=== PATIENT | female | born 1975 ===

== ENCOUNTER 2018-09-09 08:56 | Inpatient (IN) | payer BC ==
[2018-09-09 08:58] VITALS: O2SAT 98
[2018-09-09] MEDS ORDERED: Albuterol-Ipratrop 3 mg / 0.5 (3 ml) UD INH STA (09:14)
[2018-09-09] MEDS ORDERED: Lidocaine/Epi 1% 1:100000 20 ML IJ ONE (09:45)
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
[2018-09-09] MEDS ORDERED: Lidocaine 1% w Epi 1:100,000 Inj ONE (10:03)
[2018-09-09] MEDS ORDERED: Albuterol-Ipratrop 3 mg / 0.5 (3 ml) UD ONE (10:04)
[2018-09-09 10:06] LABS: BASO % 0.5 % (0.0-2.0); EOS # 0.1 K/uL (0.0-0.7); EOS % 1.1 % (0.0-4.0); HEMOGLOBIN 13.3 g/dL (12.0-16.0); LYMPH # 1.5 K/uL (1.0-4.3); LYMPH % 14.1 % (20.0-40.0); MEAN CELL VOLUME 96.7 fl (81.0-99.0); MEAN PLATELET VOLUME 8.4 fl (7.2-11.7); MONO # 0.7 K/uL (0.0-0.8); MONO % 6.1 % (0.0-10.0); NEUT # 8.4 K/uL (1.8-7.0); NEUT % 78.2 % (50.0-75.0); NRBC % 0.1 % (0.0-0.0); RBC 4.17 Mil/uL (3.80-5.20); RED CELL DISTRIBUTION WIDTH 12.9 % (11.5-14.5); WHITE BLOOD COUNT 10.8 K/uL (4.8-10.8)
[2018-09-09 10:20] LABS: ALB/GLOB RATIO 1.1 (1.0-2.1); ALBUMIN 3.5 g/dL (3.5-5.0); ALT/SGPT 29 U/L (9-52); AST/SGOT 31 U/L (14-36); BLOOD UREA NITROGEN 8 mg/dl (7-17); CALCIUM 8.8 mg/dL (8.4-10.2); GFR NON-AFRICAN AMERICAN > 60
--- NOTE | 2018-09-09 10:58 | ED PDOC ---
HPI: Psych/Substance Abuse Time Seen by Provider: 09/09/18 09:06 Chief Complaint (Nursing): Psychiatric Evaluation Past Medical History Vital Signs: Last Vital Signs Temp 98.4 F 09/09/18 08:57 Pulse 72 09/09/18 08:57 Resp 18 09/09/18 08:57 BP 161/85 H 09/09/18 08:57 Pulse Ox 98 09/09/18 09:54 - Medical History PMH: Asthma, Depression - Surgical History Surgical History: No Surg Hx - Family History Family History: States: Unknown Family Hx - Allergies Allergies/Adverse Reactions: Allergies Allergy/AdvReac Type Severity Reaction Status Date / Time aspirin Allergy SWELLING Verified 09/09/18 09:10 cortisone Allergy RASH Verified 09/09/18 09:11 Penicillins Allergy RASH Verified 09/09/18 09:09 - Laboratory Results Result Diagrams: 09/09/18 09:50 09/09/18 09:50 - ECG O2 Sat by Pulse Oximetry: 98 (RA) Disposition - Disposition Forms: [employer] (Slovak)
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
[2018-09-09 11:52] LABS: SQUAMOUS EPITHIAL 1 /hpf (0-5); URINE BACTERIA OCC (<OCC); URINE BILIRUBIN NEGATIVE (NEGATIVE); URINE BLOOD NEGATIVE (NEGATIVE); URINE CLARITY CLEAR (Clear); URINE COLOR STRAW (YELLOW); URINE GLUCOSE (UA) NEG (NEGATIVE); URINE LEUKOCYTE ESTERASE NEG Leu/uL (Negative); URINE PROTEIN NEGATIVE (NEGATIVE); URINE UROBILINOGEN 0.2-1.0 mg/dL (0.2-1.0)
[2018-09-09 12:18] LABS: BARBITURATES, UR NEGATIVE (NEGATIVE); BENZODIAZEPINES, UR NEGATIVE (NEGATIVE); OPIATES, UR NEGATIVE (NEGATIVE); PHENCYCLIDINE, UR NEGATIVE (NEGATIVE)
[2018-09-09 13:49] LABS: ACETAMINOPHEN < 10.0 ug/ml (10.0-30.0); SALICYLATE < 1.0 mg/dl
--- NOTE | 2018-09-09 19:00 | CARD ---
APPROVED REPORT Date of service: 09/09/2018 EKG Measurement Heart [id number] <Conclusion> Normal sinus rhythm with sinus arrhythmia Normal ECG
[2018-09-09] MEDS ORDERED: Alum-Mag Hydrox-Simethicone Susp (30 mL) PO PRN (20:06)
[2018-09-09] MEDS ORDERED: DiphenhydrAMINE 50 mg/ml Inj IM PRN (20:06)
[2018-09-09] MEDS ORDERED: Magnesium Hydroxide Susp 30 ml UD PO PRN (20:06)
[2018-09-09] MEDS ORDERED: Albuterol-Ipratrop 3 mg / 0.5 (3 ml) UD IH PRN (20:37)
--- NOTE | 2018-09-09 20:53 | PCM.BM ---
<Margaret Ozuna Adriano - Last Filed: 09/09/18 20:51> Treatment Plan Problems - Problems identified on initial assessmt Hopelessness/Helplessness Date Initiated: 09/09/18 Time Initiated: 20:52 Assessment reference: NA Status: Active Self Harm Date Initiated: 09/09/18 Time Initiated: 20:52 Assessment reference: NA Status: Active Altered Sleep Patterns Date Initiated: 09/09/18 Time Initiated: 20:53 Assessment reference: NA Status: Active Treatment assets and liabiliti Patient Assests: cooperative, educated, self-reliant, ADL independent, negotiates basic needs Patient Liabilities: financial problems, poor support system, relationship conflicts (Homelessness), other (Homelessness) - Milieu Protocol Maintain good personal hygiene: daily Encourage regular showers, every shift Remind patient to perform daily oral care Conduct patient checks and document Observation sheet: Q15 minutes Maintain personal safety: every shift Educate patient to report safety concerns to staff, every shift Monitor environment for contraband/sharps Medication safety: Monitor for expected outcome, potential side effects: every shift, Assess barriers to learning: every shift, Assess readiness for medication education: every shift <ReneShira - Last Filed: 09/11/18 15:52> Treatment assets and liabiliti Patient Assests: good support system (Pt. identifies as "reason for living" but identifies as primary stressor), cognitively intact Patient Liabilities: poor support system (Pt. reports mother was primary source of support until her 16 years ago. ), relationship conflicts (Pt. reports significant discord with for past 4 years. ), substance abuse (Pt. appears to be minimizing substance abuse. Pt. minimally receptive to feedback regarding risks of ongoing substance abuse and benefits of sobriety.) Family Contact Family involvement: Family/SO is involved Family contact: Patient agrees to contact, Family has been contacted by patient, Telephone contact initiated by staff - Outside Agency Agency 1 Care involvment: Following patient during stay, Information-sharing Agency contact name: Belia Ag LCSW Agency contact number: Agency 2 Care involvment: Following patient during stay, Information-sharing Agency contact name: Dr. Olga Mendoza Agency contact number: - Goals for Treatment Patient goals for treatment: Patient to continue stabilization on 3NP through medication management and group/supportive therapy to address sxs of depression and eliminate suicidal ideations. Patient to be encouraged to attend groups regularly to promote self-awareness, sobriety, and improve insight, compliance, coping skills and self-esteem. Patient to be provided with referral for appropriate level of aftercare to reduce risk of future hospitalizations and ensure safety in the community. Pt. identified "figuring out what the hell to do with my marriage" and "grasping at a reason to live" as primary tx goals. Discharge/Continuing Care - Education Needs Education Needs: Patient Medication, Patient Diagnosis/Disease Process, Patient Coping Skills, Patient Anger Management skills, Patient Community resources, Patient Aftercare Safety Plan - Discharge Discharge Criteria: Tolerates medication w/o severe side effects, Free of Suicidal thoughts, Normal sleep pattern, Other Discharge to:: Home, With Family (Pt. reports meeting with on 09/10 and discussing goals to repair marriage but improving communication. Pt. now has plans to return home upon discharge.) - Treatment Team Participation Patient/Family/SO Statement: 09/11/18 15:58 Pt. attended tx team on 09/10 to discuss precursors to hospitalizations and tx goal. Pt. expressed sxs of depression as exhibited by tearfulness, feelings of hopelessness/helplessness. Pt. histrionic and labile. Pt. reported passive suicidal ideations without plan or intent and was able to contract for safety on 3NP. Pt. denied feeling remorse regarding suicide attempt leading to admission and expressed disappointment that she could not complete attempt. Pt. stated I wont try cutting again. That hurt too much. Insight/Coping skills/Judgment impaired. Pt. grandiose at times. Pt. unable to explore alternate coping skills or future oriented thinking independently. Pt. hesitant to restart depakote but agreeable. Pt. expressed anxiety regarding visitation with on 09/10 and fear of becoming homeless if meeting did not go well. Benefits of having conversation with loved ones in a safe, structured environment such as 3NP discussed. Staff availability emphasized. Discussed with Family/SO: No Was Patient/Family/SO present at Treatment Team Meeting: Yes <Seferino Williamson - Last Filed: 09/12/18 12:30> - Diagnosis (1) Depression Status: Acute Interventions: 09/12/18 12:30 psychotherapy, pharmacotherapy
[2018-09-09] MEDS: Fluticasone-Salmeterol 250-50mcg Diskus IH SCH (21:30)
[2018-09-10] MEDS: Albuterol HFA 90 mcg/actuation (8 g) IH PRN ×3 (06:36→17:49)
[2018-09-10] MEDS: Fluticasone-Salmeterol 250-50mcg Diskus IH SCH ×2 (09:00→21:12)
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
[2018-09-10] MEDS: Sucralfate 1 gm/10 ml Oral Susp UD PO SCH ×3 (16:19→21:12)
--- NOTE | 2018-09-10 17:10 | PCM.PSYCH ---
Initial Psychiatric Evaluation - Initial Psychiatric Evaluation Type of Admission: Voluntary Legal Status: Capacity Chief Complaint (in patient's own words): I just feel trapped in my relation History of Present Illness and Precipitating Events: pt is a 42 ys old female with previous diagnosis of depression brought to ER after suicidal attempt by cutting her wrist , pt has been having marital problems with her , has also been partially compliant with her medications, recent stressors the memory of of her mother and uncle, patient also has been feeling trapped in her marriage and sees no way out feeling hopless and helpless , attempted suicide by cutting her wrist pt has previous suiicdal attempt by overdose on the unit continues to be irritable anxious and labile verbalizing passive suicidal ideation without active plan , denied command hallucinations , denied homicidal ideation Current Medications: Active Medications Generic Name Dose Route Start Last Admin Trade Name Freq PRN Reason Stop Dose Admin Acetaminophen 650 mg 09/09/18 20:06 Tylenol 325mg Tab PO Q4 PRN Pain, moderate (4-7) Al Hydrox/Mg Hydrox/Simethicone 30 ml 09/09/18 20:06 Maalox Plus 30 Ml PO Q4 PRN Dyspepsia Albuterol 2 puff 09/09/18 20:37 09/10/18 11:48 Ventolin Hfa 90 Mcg/Actuation (8 G) IH 2 puff Q6 PRN Administration Shortness of Breath Albuterol/Ipratropium 3 ml 09/09/18 20:37 Duoneb 3 Mg/0.5 Mg (3 Ml) Ud IH Q6 PRN Shortness of Breath Clonazepam 0.5 mg 09/10/18 22:00 Klonopin PO HS ALEJANDRA Clonazepam 0.5 mg 09/11/18 09:00 Klonopin PO DAILY ALEJANDRA Diphenhydramine HCl 50 mg 09/09/18 20:06 Benadryl IM Q6 PRN Extrapyramidal S/S Unable PO Diphenhydramine HCl 50 mg 09/09/18 20:06 Benadryl PO Q6 PRN Extrapyramidal Symptoms Divalproex Sodium 750 mg 09/10/18 22:00 Depakote Er(Once Daily) PO HS ALEJANDRA Haloperidol 5 mg 09/09/18 20:06 Haldol PO Q4 PRN Agitation Haloperidol Lactate 5 mg 09/09/18 20:06 Haldol IM Q4 PRN Agitation, Unable to Take PO Home Med 20 mg 09/10/18 14:54 Omeprazole Magnesium [Prilosec Otc] PO DAILY PRN Heartburn Lorazepam 2 mg 09/09/18 20:06 Ativan IM Q4 PRN Anxiety/Agitation,Unable PO Magnesium Hydroxide 30 ml 09/09/18 20:06 Milk Of Magnesia PO HS PRN Constipation Montelukast Sodium 10 mg 09/10/18 22:00 Singulair PO HS ALEJANDRA Fluticasone/Salmeterol 1 puff 09/09/18 21:00 09/10/18 09:00 Advair Diskus 250/50 IH 1 puff Q12 ALEJANDRA Administration Sucralfate 1 gm 09/10/18 09:15 09/10/18 16:21 Carafate Oral Susp PO Not Given BID ALEJANDRA Trazodone HCl 50 mg 09/09/18 21:29 09/09/18 22:12 Desyrel PO 50 mg HS PRN Administration Insomnia Venlafaxine HCl 75 mg 09/11/18 09:00 Effexor Xr PO DAILY ALEJANDRA Past Psychiatric History - Past Psychiatric History Explanation of prior treatment: one hospitalization due to overdose Pertinent Medical Hx (Current Medical&Sleep Prob, Allergies): Allergies Allergy/AdvReac Type Severity Reaction Status Date / Time aspirin Allergy SWELLING Verified 09/09/18 09:10 cortisone Allergy RASH Verified 09/09/18 09:11 Penicillins Allergy RASH Verified 09/09/18 09:09 PORK Allergy RASH Verified 09/09/18 13:16 Albuterol Sulfate [Ventolin Hfa] 2 puff IH Q6 PRN 09/09/18 Albuterol/Ipratropium [Duoneb 3 mg/0.5 mg (3 ml) UD] 3 ml IH Q6 PRN 09/09/18 Divalproex [Depakote ER] 1,000 mg PO HS 09/09/18 Fluticasone/Salmeterol [Advair 250-50 Diskus] 1 puff IH Q12 09/09/18 Montelukast [Singulair] 10 mg PO HS 09/09/18 Omeprazole Magnesium [Prilosec Otc] 20 mg PO DAILY PRN 09/09/18 Venlafaxine [Effexor XR] 150 mg PO DAILY 09/09/18 clonazePAM [Klonopin] 0.5 mg PO Q12 09/09/18 Mental Status Examination - Personal Presentation Personal Presentation: Looks stated age - Affect Affect: Constricted - Motor Activity Motor Activity: Psychomotor Agitation - Reliability in Providing Information Reliability in Providing Information: Fair - Speech Speech: Relevant - Mood Mood: Depressed, Anxious - Formal Thought Process Formal Thought Process: No Impairment - Obsessions/Compulsions Obsessions: No Compulsions: No - Cognitive Functions Orientation: Person, Place Attention/Concentration: Attentive - Risk Risk: Suicidal, Self-mutilation, Diminished functioning - Strength & Assets Inventory Strength & Assets Inventory: Employment history - Limitations Additional comments: conflict with primary support group DSM 5 DX - DSM 5 DSM 5 Diagnosis: depression rule out bipolar disorder depressed borderline personality traits - Recommended/Plan of Treatment Treatment Recommendations and Plan of Treatment: effexor xr 75 mg daily, increase gradually depakte er 750mg qhs klonopin 0.5mg bid cbt group and supportive therapy
[2018-09-10] MEDS: Divalproex 250 mg ER (ONCE DAILY formulation) PO SCH (21:13)
[2018-09-11] MEDS: Sucralfate 1 gm/10 ml Oral Susp UD PO SCH ×4 (08:07→21:07)
[2018-09-11 08:16] LABS: T4 6.65 ug/dl (5.5-11.0)
[2018-09-11] MEDS: Fluticasone-Salmeterol 250-50mcg Diskus IH SCH ×2 (09:27→21:09)
[2018-09-11] MEDS: Venlafaxine 75 mg ER Cap PO SCH (09:28)
[2018-09-11] MEDS: Divalproex 250 mg ER (ONCE DAILY formulation) PO SCH (21:06)
[2018-09-11] MEDS: Albuterol HFA 90 mcg/actuation (8 g) IH PRN (22:03)
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
[2018-09-12] MEDS: Sucralfate 1 gm/10 ml Oral Susp UD PO SCH ×4 (08:13→21:19)
[2018-09-12] MEDS: Fluticasone-Salmeterol 250-50mcg Diskus IH SCH ×2 (09:00→21:19)
[2018-09-12] MEDS: Venlafaxine 75 mg ER Cap PO SCH (09:00)
--- NOTE | 2018-09-12 13:42 | PCM.PYCHPN ---
Psychiatric Progress Note - Psychiatric Progress Note Patient seen today, length of contact: chart reviewed, case discussed with team Patient Chief Complaint: I still have mood swings and I feel down Problems Identified/Issues Discussed: pt evaluated, reported continues to have episodes of irritability and mood swings, relates that to the unstable relation with her , CBT provided and discussed with patient importance of family therapy on discharge ,discussed increasing dose of depakote, also discussed increasing dose of effexor for depressed mood, no reported side effects, encouraged pt to attend groups, pt denied any current active thoughts of self harm on the unit Medical Problems: one hospitalization due to overdose DSM 5 Symptoms Update: bipolar disorder depressed borderline personality traits Medication Change: Yes (increase effexor and depakote) Medical Record Reviewed: Yes Mental Status Examination - Cognitive Function Orientation: Person, Place, Situation, Time Memory: Intact Attention: WNL Concentration: WNL Association: WNL Fund of Knowledge: [facility] Decription of patient's judgement and insights: partial insight , fair judgment - Mood Mood: Depressed, Anxious - Affect Affect: Constricted - Speech Speech: Soft - Formal Thought Process Formal Thought Process: No Impairment Psychotic Thoughts and Behaviors: pt denied psychotic symptoms, non elicited - Suicidal Ideation Suicidal Ideation: No - Homicidal Ideation Homicidal Ideation: No Goal/Treatment Plan - Goal/Treatment Plan Need for Continued Stay: Severe depression anxiety, Discharge may exacerbated symptoms Progress Toward Problem(s) and Goals/Treatment Plan: increase effexor xr 150 mg daily, increase gradually increase depakte er 1000 mg qhs klonopin 0.5mg bid cbt group and supportive therapy Estimated Date of D/C: 09/15/18
[2018-09-12] MEDS: Divalproex 500 mg ER (ONCE DAILY formulation) PO SCH (21:19)
[2018-09-13] MEDS: Sucralfate 1 gm/10 ml Oral Susp UD PO SCH ×4 (08:12→21:17)
[2018-09-13] MEDS: Fluticasone-Salmeterol 250-50mcg Diskus IH SCH ×2 (08:58→21:19)
[2018-09-13] MEDS: Venlafaxine 150 mg ER Cap PO SCH (09:00)
--- NOTE | 2018-09-13 10:56 | PCM.PYCHPN ---
Psychiatric Progress Note - Psychiatric Progress Note Patient seen today, length of contact: Pt evaluated, chart reviewed Patient Chief Complaint: Depression Problems Identified/Issues Discussed: Patient reports feeling less depressed and states that her mood swings are less frequent. She denies acute AH/VH/SI/HI/paranoia/delusions. She denies adverse effects to medications. Medication Change: No Medical Record Reviewed: Yes Consults ordered or reviewed: Medicine consult Mental Status Examination - Cognitive Function Orientation: Person, Place, Situation, Time Memory: Intact Attention: WNL Concentration: WNL Association: WNL Fund of Knowledge: [facility] Decription of patient's judgement and insights: Fair I/J - Mood Mood: Depressed, Anxious - Affect Affect: Constricted - Speech Speech: Soft - Formal Thought Process Formal Thought Process: No Impairment Psychotic Thoughts and Behaviors: NO AH/VH/paranoia/delusions - Suicidal Ideation Suicidal Ideation: No - Homicidal Ideation Homicidal Ideation: No Goal/Treatment Plan - Goal/Treatment Plan Need for Continued Stay: Severe depression anxiety, Discharge may exacerbated symptoms Progress Toward Problem(s) and Goals/Treatment Plan: Bipolar Disorder -Continue Depakote, Klonocristal, Effexor -Individual and group therapy -Medicine consult -Psychoeducation -Disposition planning Estimated Date of D/C: 09/15/18
[2018-09-13] MEDS: Multivitamin With Minerals Tab PO SCH (13:14)
[2018-09-13] MEDS: Albuterol HFA 90 mcg/actuation (8 g) IH PRN (20:28)
[2018-09-13] MEDS: Divalproex 500 mg ER (ONCE DAILY formulation) PO SCH (21:16)
[2018-09-14] MEDS: Albuterol HFA 90 mcg/actuation (8 g) IH PRN (03:59)
[2018-09-14 08:01] LABS: BASO % 0.6 % (0.0-2.0); EOS # 0.1 K/uL (0.0-0.7); EOS % 0.8 % (0.0-4.0); HEMOGLOBIN 13.1 g/dL (12.0-16.0); LYMPH # 1.8 K/uL (1.0-4.3); MEAN CELL VOLUME 95.8 fl (81.0-99.0); MEAN CORPUSCULAR HEMOGLOBIN 31.8 pg (27.0-31.0); MEAN CORPUSCULAR HGB CONC 33.1 g/dL (33.0-37.0); MEAN PLATELET VOLUME 9.3 fl (7.2-11.7); MONO # 0.6 K/uL (0.0-0.8); NEUT # 3.8 K/uL (1.8-7.0); NEUT % 60.6 % (50.0-75.0); NRBC % 0.2 % (0.0-0.0); RBC 4.14 Mil/uL (3.80-5.20); RED CELL DISTRIBUTION WIDTH 13.2 % (11.5-14.5); WHITE BLOOD COUNT 6.3 K/uL (4.8-10.8)
--- NOTE | 2018-09-14 08:28 | PCM.PYCHPN ---
Psychiatric Progress Note - Psychiatric Progress Note Patient seen today, length of contact: Pt evaluated, chart reviewed Patient Chief Complaint: Depression Problems Identified/Issues Discussed: Patient reports feeling less depressed and less irritable, but she continues to have periods of anxiety and had difficulty sleeping last night. She denies acute AH/VH/SI/HI/paranoia/delusions. She denies adverse effects to medications. Medication Change: No Medical Record Reviewed: Yes Consults ordered or reviewed: Medicine consult Mental Status Examination - Cognitive Function Orientation: Person, Place, Situation, Time Memory: Intact Attention: WNL Concentration: WNL Association: WNL Fund of Knowledge: [facility] Decription of patient's judgement and insights: Fair I/J - Mood Mood: Depressed, Anxious - Affect Affect: Constricted - Speech Speech: Soft - Formal Thought Process Formal Thought Process: No Impairment Psychotic Thoughts and Behaviors: NO AH/VH/paranoia/delusions - Suicidal Ideation Suicidal Ideation: No - Homicidal Ideation Homicidal Ideation: No Goal/Treatment Plan - Goal/Treatment Plan Need for Continued Stay: Severe depression anxiety, Discharge may exacerbated symptoms Progress Toward Problem(s) and Goals/Treatment Plan: Bipolar Disorder -Continue Depakote, Klonopin, Effexor -Individual and group therapy -Medicine consult -Psychoeducation -Disposition planning
[2018-09-14 08:36] LABS: BLOOD UREA NITROGEN 12 mg/dl (7-17); GFR NON-AFRICAN AMERICAN > 60
[2018-09-14] MEDS: Sucralfate 1 gm/10 ml Oral Susp UD PO SCH ×5 (08:45→21:12)
[2018-09-14] MEDS: Fluticasone-Salmeterol 250-50mcg Diskus IH SCH ×2 (09:29→21:13)
[2018-09-14] MEDS: Venlafaxine 150 mg ER Cap PO SCH (09:30)
[2018-09-14] MEDS: Citracal+D 315mg/250IU PO SCH (09:30)
[2018-09-14] MEDS: Multivitamin With Minerals Tab PO SCH (09:31)
[2018-09-14 13:26] LABS: FOLATE 11.1 ng/mL
[2018-09-14] MEDS: Divalproex 500 mg ER (ONCE DAILY formulation) PO SCH (21:13)
[2018-09-15] MEDS: Sucralfate 1 gm/10 ml Oral Susp UD PO SCH ×2 (08:39→12:55)
[2018-09-15] MEDS: Venlafaxine 150 mg ER Cap PO SCH (08:39)
[2018-09-15] MEDS: Fluticasone-Salmeterol 250-50mcg Diskus IH SCH (08:40)
[2018-09-15] MEDS: Citracal+D 315mg/250IU PO SCH (08:42)
[2018-09-15] MEDS: Multivitamin With Minerals Tab PO SCH (08:42)
[2018-09-15 09:09] VITALS: BP 132/75; PULSE 62; RESP 18; TEMP 98.5
--- NOTE | 2018-09-15 13:22 | PCM.PYCHDC ---
Mental Status Examination - Mental Status Examination Orientation: Person, Place, Situation, Time Memory: Intact Mood: Neutral Affect: Broad Speech: Appropriate Attention: WNL Concentration: WNL Association: WNL Fund of Knowledge: WNL Formal Thought Process: No Impairment Description of patient's judgement and insight: partial insight , fair judgment Psychotic Thoughts and Behaviors: pt denied psychotic symptoms, non elicited Suicidal Ideation: No Current Homicidal Ideation?: No Discharge Summary - Discharge Note Reason for Hospitalization: pt is a 42 ys old female with previous diagnosis of depression brought to ER after suicidal attempt by cutting her wrist , pt has been having marital problems with her , has also been partially compliant with her medications, recent stressors the memory of of her mother and uncle, patient also has been feeling trapped in her marriage and sees no way out feeling hopeless and helpless , attempted suicide by cutting her wrist pt has previous suiicdal attempt by overdose on the unit continues to be irritable anxious and labile verbalizing passive suicidal ideation without active plan , denied command hallucinations , denied homicidal ideation Laboratory Data: Abnormal Lab Results 09/14/18 07:31 Folate 11.1 Consultations:: List each consultation separately and include: 1. Reason for request. 2. Findings. 3. Follow-up Summary of Hospital Course include:: 1. Description of specific treatment plan utilized for patients during their course of treatmen. 2. Summarize the time- course for resolution of acute symptoms and/or regressed behaviors. 3. Describe issues identified and worked on during hospitalization. 4. Describe medication utilized. 5. Describe medical problems identified and treated. 6. Reassessment of suicide risk Summary of Hospital Course: pt on admission presented with anxious depressed and irritable mood, labile affect pt was restarted on effexor and klonopin , also placed on depakote for mood stabilization CBT , group and supportive therapy provided, pt was advised about healthy coping skills with stress other than self harm pt was compliant with treatment no reported side effects , depakote level was 41, pt reused further increase in dose of depakote on discharge pt mental status was stable , pt denied any current suicidal or homicidal ideation denied perceptual disturbances follow up arranged by health and social care teacher at outpatient private practice - Diagnosis (1) Depression Current Visit: Yes Status: Acute - Final Diagnosis (DSM 5) Condition upon Discharge: STABLE DSM 5: bipolar II disorder borderline personality traits Disposition: HOME/ ROUTINE Follow-up Treatment Plan: increase effexor xr 150 mg daily, increase gradually increase depakte er 1000 mg qhs klonopin 0.5mg bid cbt group and supportive therapy Prescriptions/Medication Reconciliation: clonazePAM [Klonopin] 0.5 mg PO DAILY 1 Days #7 tab clonazePAM [Klonopin] 0.5 mg PO HS #7 tab Divalproex [Depakote ER(ONCE DAILY)] 1,000 mg PO HS 7 Days #7 ter Nicotine 14 mg/24 hr [Nicoderm CQ] 1 patch TD DAILY 30 Days #30 patch traZODone [Desyrel] 50 mg PO HS PRN 7 Days #7 tab PRN Reason: Insomnia Venlafaxine [Effexor XR] 150 mg PO DAILY 7 Days #7 cer - Antipsychotic Medications Pt discharged on 2 or more routine antipsychotic medications: No
== END 2018-09-15 15:29 | disposition home or self-care (01) | DRG 885 ==
LOC: H.ER 08:56 → H.ERHOLD 13:08 → H.PSYCH 19:45
PROVIDERS: ADMIT Psychiatry & Neurology Psychiatry; ATTEND Psychiatry & Neurology Psychiatry
PROC: GZHZZZZ Group Psychotherapy (ICD-10-PCS; principal; 2018-09-09)
PROC: GZ58ZZZ Individual Psychotherapy, Cognitive-Behavioral (ICD-10-PCS; 2018-09-09)
PROC: GZ56ZZZ Individual Psychotherapy, Supportive (ICD-10-PCS; 2018-09-09)
PROC: 0HQEXZZ Repair Left Lower Arm Skin, External Approach (ICD-10-PCS; 2018-09-09)
DX: F31.81 Bipolar II disorder (principal); R45.851 Suicidal ideations; S51.812A Laceration without foreign body of left forearm, initial encounter; Z63.0 Problems in relationship with spouse or partner; Z88.6 Allergy status to analgesic agent; Z88.0 Allergy status to penicillin; Z91.018 Allergy to other foods; X78.0XXA Intentional self-harm by sharp glass, initial encounter; Y92.9 Unspecified place or not applicable; J45.40 Moderate persistent asthma, uncomplicated; Z98.84 Bariatric surgery status; F17.210 Nicotine dependence, cigarettes, uncomplicated; F60.3 Borderline personality disorder